=== PATIENT | female | born 1985 | race Caucasian/White ===

== ENCOUNTER → 2018-12-18 | Day surgery (SDC) | payer OTHER ==
[~2018-12-18] MED LIST: ESTR0.5T PO; IV RINGERS,LACTATED 1000ML 1,000 ML IV SCH; NORT25CA PO; OMEP20TA63 PO; PROPOFOL 20 ML IV ONE; PROPOFOL 40 ML IV ONE
[2018-12-18 10:11] VITALS: BP 132/82
--- NOTE | 2018-12-19 12:06 | PATHOLOGY ---
[facility] Accession Number: [id number] . 01 Material submitted: . PART A: small bowel - SMALL BOWEL BIOPSY PART B: stomach - GASTRIC ANTRUM AND BODY BIOPSY PART C: esophagus - DISTAL ESOPHAGUS. Modifiers: distal PART D: esophagus - MID ESOPHAGUS BIOPSY. Modifiers: mid PART E: ileum - TERMINAL ILEUM BIOPSY PART F: cecum - CECAL POLYP PART G: cecum - CECUM BIOPSY PART H: colon - ASCENDING COLON BIOPSY. Modifiers: ascending PART I: hepatic flexure - HEPATIC FLEXURE BIOPSY PART J: colon - TRANSVERSE BIOPSY. Modifiers: transverse PART K: colon - DESCENDING COLON BIOPSY. Modifiers: descending PART L: colon - SIGMOID BIOPSY. Modifiers: sigmoid PART M: rectum - RECTAL BIOPSY . 01 Clinical history: . Dysphagia, GERD, rectal bleeding . 02 Diagnosis: A. Small bowel, biopsy: - No pathologic diagnosis. . B. Stomach, antrum, biopsy: - Mild chronic inflammation, nonspecific. - No evidence of Helicobacter pylori on immunoperoxidase stain. . C. Esophagus, distal, biopsy: - Squamocolumnar epithelium with mild chronic inflammation. - No evidence of intestinal metaplasia. . D. Esophagus, mid, biopsy: - Fragments of unremarkable squamous epithelium. - Separate fragments of columnar epithelium with mild chronic inflammation and no evidence of intestinal metaplasia. . E. Small bowel, terminal ileum, biopsy: - No pathologic diagnosis. . F. Colon, "cecal polyp", biopsy: - Colonic mucosa with mild hyperplastic changes. . G. Colon, cecum, biopsy: - Colonic mucosa with mild hyperplastic changes and mild acute and chronic inflammation. . H through K. Colon, ascending, hepatic, transverse, and descending, biopsies: - Colonic mucosa with mild acute and chronic inflammation. . L and M. Colon, sigmoid and rectum, biopsies: - Colonic mucosa with no pathologic diagnosis. (SKM:[facility]; 12/19/2018) [facility] 12/19/2018 0955 [facility] . 02 Electronically signed: . Viktor Correa MD, Pathologist NPI- [id number] . 01 Gross description: . A. The specimen is received in formalin, labeled "Yolanda Shrap, small bowel BX" and consists of multiple fragments of griffin-brown tissue measuring 1.0 x 0.6 x 0.2 cm in aggregate which are entirely submitted in A1. . B. The specimen is received in formalin, labeled "Sharp, Yolanda, gastric antrum and body BX" and consists of 4 fragments of griffin-brown tissue measuring between 0.3 x 0.2 cm and 0.8 x 0.3 cm which are entirely submitted in B1. . C. The specimen is received in formalin, labeled "Aron, Yolanda, distal esophagus BX" and consists of 3 middleton-griffin and translucent to opaque fragments of tissue measuring between 0.3 x 0.3 cm and 0.6 x 0.3 cm which are entirely submitted in C1. . D. The specimen is received in formalin, labeled "Aron, Yolanda, mid esophagus BX" and consists of multiple translucent fragments of middleton-griffin tissue measuring 0.7 x 0.6 x 0.1 cm in aggregate which are entirely submitted in D1. . E. The specimen is received in formalin, labeled "Tasneem Sharpn, terminal ileum BX" and consists of 2 fragments of pink-griffin tissue measuring 0.5 x 0.4 cm and 0.9 x 0.3 cm which are entirely submitted in E1. . F. The specimen is received in formalin, labeled "Sharp, Yolanda, cecal polyp" and consists of a fragment of pink-griffin tissue measuring 1.1 x 0.3 x 0.1 cm which is entirely submitted in F1. . G. The specimen is received in formalin, labeled "Sharp, Yolanda, cecal BX" and consists of 4 fragments of pink-griffin tissue measuring between 0.3 x 0.3 cm and 0.5 x 0.4 cm which are entirely submitted in G1. . H. The specimen is received in formalin, labeled "Sharp, Yolanda, ascending colon BX" and consists of 4 fragments of pink-griffin tissue measuring between 0.3 x 0.3 cm and 0.5 x 0.3 cm which are entirely submitted in H1. . I. The specimen is received in formalin, labeled "Sharp, Yolanda, hepatic flexure BX" and consists of multiple soft and friable pink-griffin tissue measuring 1.4 x 0.5 x 0.2 cm in aggregate which are entirely submitted in I1. . J. The specimen is received in formalin, labeled "Sharp, Yolanda, transverse colon BX" and consists of 4 fragments of pink-griffin tissue measuring between 0.3 x 0.1 cm and 0.7 x 0.2 cm which are entirely submitted in J1. . K. The specimen is received in formalin, labeled "Sharp, Yolanda, descending colon BX" and consists of multiple fragments of pink-griffin tissue measuring 1.0 x 0.6 x 0.2 cm in aggregate which are entirely submitted in K1. . L. The specimen is received in formalin, labeled "Sharp, Yolanda, sigmoid BX" and consists of multiple fragments of pink-griffin tissue measuring 1.5 x 0.5 x 0.2 cm in aggregate which are entirely submitted in L1. . M. The specimen is received in formalin, labeled "Sharp, Yolanda, rectal BX" and consists of 4 fragments of pink-griffin tissue measuring between 0.3 x 0.3 cm and 0.5 x 0.3 cm which are entirely submitted in M1. (SDY; 12/18/2018) SYU/SYU 12/19/2018 0950 Local . 02 Pathologist provided ICD-10: K29.50, K20.9, K52.9, R13.10, K21.9 . 02 CPT . 707866, 776227, 003405, 767423, 262268, 642095, 814505, 608468, 867674, 448113, 539383, 684906, 059365, [id number] Specimen Comment: A courtesy copy of this report has been sent to Specimen Comment: [phone], . Specimen Comment: Report sent to / DR GOULD Performed at: [address], [place], [place] [id number] MD Marquis Adam MD Phone: [phone] Performed at: 02 [facility] [address], [place] [id number] MD Kevin Chatterjee MD Phone: [phone]
== END ==
LOC: SURG 08:16
PROVIDERS: ATTEND Internal Medicine Gastroenterology
DX: K62.5 Hemorrhage of anus and rectum (principal); K21.0 Gastro-esophageal reflux disease with esophagitis; K29.50 Unspecified chronic gastritis without bleeding; K63.5 Polyp of colon; K64.0 First degree hemorrhoids; K52.89 Other specified noninfective gastroenteritis and colitis; K51.90 Ulcerative colitis, unspecified, without complications; J45.909 Unspecified asthma, uncomplicated; F15.90 Other stimulant use, unspecified, uncomplicated; Z88.8 Allergy status to other drugs, medicaments and biological substances; Z87.39 Personal history of other diseases of the musculoskeletal system and connective tissue; Z80.0 Family history of malignant neoplasm of digestive organs; Z72.89 Other problems related to lifestyle; Z87.891 Personal history of nicotine dependence; Z90.710 Acquired absence of both cervix and uterus
CPT/HCPCS: 43239; 43450; 45380; 88305; 88342; J2704